=== PATIENT | female | born 2000 | race Asian ===

== ENCOUNTER 2024-08-28 22:16 | Emergency (ER) | payer MEDICAID ==
[~2024-08-28] VITALS: Ht 157.5 cm; Wt 61.5 kg
[2024-08-28 22:18] VITALS: O2SAT 99
[2024-08-28] MEDS: ONDANSETRON 4MG ODT PO ONE (23:47)
[2024-08-28] MEDS: MORPHINE SULFATE 4 MG/ML INJ (FOR IV/IM USE) IM ONE (23:47)
[2024-08-29 00:36] LABS: HCG SCREEN NEGATIVE
[2024-08-29] MEDS ORDERED: IBUP-2029 MT (00:52)
[2024-08-29 01:29] VITALS: BP 103/71; PULSE 96; RESP 21; TEMP 36.5; O2SAT 100
== END 2024-08-29 01:43 | disposition home or self-care (01) ==
LOC: ER 22:16
DX: M25.561 Pain in right knee (principal); Z79.899 Other long term (current) drug therapy
CPT/HCPCS: 99284; 29505; 84703; 73562; 96372; Q0162; J2270